=== PATIENT | female | born 1940 | race Hispanic/Latino ===

== ENCOUNTER 2022-05-02 00:10 | Emergency (ER) | payer MEDICARE ==
[~2022-05-02] VITALS: Ht 144.8 cm; Wt 68.0 kg
[2022-05-02] MEDS ORDERED: CEFTRIAXONE 2 GM in SODIUM CHLORIDE 0.9% 100 ML IV ONE (01:15)
[2022-05-02] MEDS ORDERED: SODIUM CHLORIDE 0.9% 1000ML 1,000 ML IV SCH (01:15)
[2022-05-02] MEDS ORDERED: CEFTRIAXONE 1 GM VIAL ONE ×2 (02:04→02:06)
== END 2022-05-02 04:45 | disposition other institution (70) ==
LOC: FSED 00:16
DX: R50.9 Fever, unspecified (principal); R65.10 Systemic inflammatory response syndrome (SIRS) of non-infectious origin without acute organ dysfunction; N39.0 Urinary tract infection, site not specified; F03.90 Unspecified dementia, unspecified severity, without behavioral disturbance, psychotic disturbance, mood disturbance, and anxiety; I10 Essential (primary) hypertension; E78.5 Hyperlipidemia, unspecified; E03.9 Hypothyroidism, unspecified
CPT/HCPCS: 71046; 80053; 83605; 85025; 87040; 87086; 87186; 99284; J0696; U0002